=== PATIENT | female | born 1985 | race Asian ===

== ENCOUNTER → 2017-08-07 | Outpatient (CLI) | payer OTHER | LOC: MHCPAIN 08:24 | DX: G89.29 Other chronic pain (principal); R10.9 Unspecified abdominal pain; M79.2 Neuralgia and neuritis, unspecified | CPT/HCPCS: G0463 ==

== ENCOUNTER → 2017-11-04 | Outpatient (CLI) | payer OTHER | LOC: MHCPAIN 09:05 | DX: G89.29 Other chronic pain (principal); M79.2 Neuralgia and neuritis, unspecified; M79.1 Myalgia | CPT/HCPCS: G0463 ==

== ENCOUNTER 2017-11-23 22:07 | Emergency (ER) | payer OTHER ==
[~2017-11-23] VITALS: Ht 160 cm; Wt 52.3 kg
[2017-11-23 22:11] VITALS: BP 105/63; TEMP 97.7
[2017-11-23] MEDS ORDERED: PRENATAL (22:22)
[2017-11-23 22:30] LABS: COLLECTION METHOD CLEAN CATCH
[2017-11-23 22:35] LABS: PH 6 (5-8); SQUAMOUS EPITHELIAL 0-2 /hpf; URINE APPEARANCE Clear; URINE BACTERIA Rare /hpf; URINE BILIRUBIN Negative (NEGATIVE); URINE BLOOD 2+ (NEGATIVE); URINE COLOR Straw; URINE GLUCOSE Negative (NEGATIVE); URINE KETONE Negative (NEGATIVE); URINE LEUKOCYTE ESTERASE Negative (NEGATIVE); URINE NITRATE Negative (NEGATIVE); URINE PROTEIN(semi-quant) Negative (NEGATIVE); URINE RBC None Seen /hpf; URINE UROBILINOGEN Negative (NEGATIVE)
[2017-11-23 22:43] LABS: BASO % 0.5 % (0.0-2.0); EOS # 0.2 (0.0-0.7); EOS % 1.8 % (0-4.0); GRAN # 4.6 (1.4-6.5); GRAN % 54.8 % (42.2-75.2); HEMATOCRIT 37.4 % (37.0-47.0); HEMOGLOBIN 12.7 g/dl (12.5-16.0); LYMPH % 35.6 % (20.0-51.0); MEAN CELL VOLUME 93 fl (80.0-100.0); MEAN CORPUSCULAR HEMOGLOBIN 32 pg (27.0-31.0); MEAN CORPUSCULAR HGB CONC 34 g/dl (33.0-37.0); MEAN PLATELET VOLUME 9.3 fl (7.4-10.4); MONO # 0.6 (0.1-0.6); MONO % 6.9 % (1.7-9.3); PLATELET COUNT 261 K/mm3 (130-400); RED BLOOD COUNT 4.02 M/mm3 (4.10-5.30); REDCELL DISTRIBUTION WIDTH-CV 11.3 % (11.5-14.5)
[2017-11-23 22:52] LABS: ALANINE AMINOTRANSFERASE 28 U/L (9-52); ALBUMIN 4.1 gm/dL (3.5-5.0); ALKALINE PHOSPHATASE 52 U/L (50-136); ANION GAP 12 mmol/L (7-16); AST,SGOT 18 U/L (15-37); BILIRUBIN,TOTAL < 0.1 mg/dL (0.0-1.0); BLOOD UREA NITROGEN 16 mg/dL (7-17); CALCIUM 9.2 mg/dL (8.4-10.2); CARBON DIOXIDE 23 mmol/L (22-30); CHLORIDE 103 mmol/L (98-107); CREATININE, serum 0.62 mg/dL (0.52-1.25); GLUCOSE 81 mg/dL (74-106); POTASSIUM 3.7 mmol/L (3.4-5.0); SODIUM 139 mmol/L (137-145); TOTAL PROTEIN 7.4 gm/dL (6.4-8.2)
[2017-11-24 00:09] VITALS: PULSE 61
[2017-11-24 00:19] LABS: HCG,QUANTITATIVE 182570 mIU/mL (0-5)
== END 2017-11-24 00:08 | disposition home or self-care (01) ==
LOC: COL.ER 22:07
PROVIDERS: Nurse Practitioner
DX: O20.0 Threatened abortion (principal); Z3A.00 Weeks of gestation of pregnancy not specified

== ENCOUNTER → 2018-05-07 | Outpatient (CLI) | payer OTHER ==
[~2018-05-07] MED LIST: PRENATAL
== END ==
LOC: SUN.DIA 08:46
DX: O24.419 Gestational diabetes mellitus in pregnancy, unspecified control (principal); Z3A.31 31 weeks gestation of pregnancy
CPT/HCPCS: G0108

== ENCOUNTER → 2018-05-16 | Outpatient (CLI) | payer OTHER | LOC: SUN.DIA 10:26 | DX: O24.419 Gestational diabetes mellitus in pregnancy, unspecified control (principal); Z3A.33 33 weeks gestation of pregnancy | CPT/HCPCS: G0108 ==

== ENCOUNTER → 2018-06-12 | Outpatient (CLI) | payer OTHER | LOC: SUN.DIA 06-04 10:12 | DX: O24.419 Gestational diabetes mellitus in pregnancy, unspecified control (principal); Z3A.36 36 weeks gestation of pregnancy | CPT/HCPCS: G0108 ==

== ENCOUNTER 2018-07-07 06:34 | Inpatient (IN) | payer OTHER ==
[2018-07-07] VITALS (39 sets, daily range): BP systolic 79–107; BP diastolic 46–68; PULSE 62–83; TEMP 97.5–98.3
[~2018-07-07] VITALS: Ht 154.9 cm; Wt 61.8 kg
[2018-07-07 09:46] LABS: HEMATOCRIT 34.5 % (37.0-47.0); HEMOGLOBIN 11.3 g/dl (12.5-16.0); MEAN CELL VOLUME 95 fl (80.0-100.0); MEAN CORPUSCULAR HEMOGLOBIN 31 pg (27.0-31.0); MEAN CORPUSCULAR HGB CONC 33 g/dl (33.0-37.0); MEAN PLATELET VOLUME 10.9 fl (7.4-10.4); PLATELET COUNT 184 K/mm3 (130-400); RED BLOOD COUNT 3.63 M/mm3 (4.10-5.30); REDCELL DISTRIBUTION WIDTH-CV 13.2 % (11.5-14.5)
[2018-07-07 10:07] LABS: BAND 9 % (0-10); LYMPHOCYTE 21 % (20.0-51.0); NEUTROPHILS 66 % (42.0-75.2); PLATELET ESTIMATE NORMAL (NORMAL)
[2018-07-07] MEDS ORDERED: IBU600 MG PO (15:16)
[2018-07-07] MEDS ORDERED: PERCOCET 325 MG1 TA2 PO (15:16)
[2018-07-07] MEDS ORDERED: PREPARATION H HYDR1% TOP (15:17)
[2018-07-08 01:42] VITALS: BP 101/62; PULSE 69; TEMP 97.4
[2018-07-08 04:19] VITALS: BP 87/55; PULSE 62; TEMP 98
[2018-07-08 08:33] VITALS: BP 100/53; PULSE 78; TEMP 98.1
[2018-07-08 12:00] VITALS: BP 86/68; PULSE 76; TEMP 98.1
[2018-07-08 16:00] VITALS: BP 90/68; PULSE 72; TEMP 98.2
[2018-07-08 20:45] VITALS: BP 93/52; PULSE 75; TEMP 98.3
[2018-07-09 08:14] VITALS: BP 90/55; PULSE 65
== END 2018-07-09 10:10 | disposition home or self-care (01) | DRG 807 ==
LOC: LDR 06:34 → OB 07:21 → LDR 07:21 → OB 17:25
PROVIDERS: Obstetrics & Gynecology
PROC: 10907ZC Drainage of Amniotic Fluid, Therapeutic from Products of Conception, Via Natural or Artificial Opening (ICD-10-PCS; principal; 2018-07-07)
PROC: 10E0XZZ Delivery of Products of Conception, External Approach (ICD-10-PCS; 2018-07-07)
PROC: 0KQM0ZZ Repair Perineum Muscle, Open Approach (ICD-10-PCS; 2018-07-07)
PROC: 3E033VJ Introduction of Other Hormone into Peripheral Vein, Percutaneous Approach (ICD-10-PCS; 2018-07-07)
PROC: 0UQMXZZ Repair Vulva, External Approach (ICD-10-PCS; 2018-07-07)
DX: O71.82 Other specified trauma to perineum and vulva (principal); Z37.0 Single live birth; O24.420 Gestational diabetes mellitus in childbirth, diet controlled; Z3A.40 40 weeks gestation of pregnancy; O70.1 Second degree perineal laceration during delivery; O99.824 Streptococcus B carrier state complicating childbirth; O69.81X0 Labor and delivery complicated by cord around neck, without compression, not applicable or unspecified; Z28.21 Immunization not carried out because of patient refusal
CPT/HCPCS: J2540; J2590; J2795; J7120

== ENCOUNTER 2020-01-15 16:36 | Emergency (ER) | payer OTHER ==
[~2020-01-15] VITALS: Ht 154.9 cm; Wt 56.8 kg
[~2020-01-15 16:36] MED LIST changes: +AMBIEN 5MG TABLE5 MG PO; +IBU600 MG PO; +IMPLANON68 MG ID; +PERCOCET 325 MG1 TA2 PO; +PRENATAL1 TA6 PO; +PREPARATION H HYDR1% TOP; +REGLAN 10MG10 MG/TAB PO; +ZANTAC 150MG T150 MG PO
[2020-01-15 16:44] VITALS: BP 1808/65; TEMP 97.7
[2020-01-15] MEDS ORDERED: ZYRTEC5 MG PO (16:59)
[2020-01-15 17:36] VITALS: PULSE 71
== END 2020-01-15 17:45 | disposition home or self-care (01) ==
LOC: COL.ER 16:36
DX: S61.412A Laceration without foreign body of left hand, initial encounter (principal); Z23 Encounter for immunization; W26.0XXA Contact with knife, initial encounter